=== PATIENT | male | born 1955 | race Caucasian/White ===

== ENCOUNTER 2017-10-09 20:30 | Inpatient (IN) | payer BC ==
[~2017-10-09] VITALS: Ht 172.7 cm; Wt 104.2 kg
[~2017-10-09 20:30] MED LIST: ATOR20 PO; CODLIVC PO; DOXA4 PO; DULO30 PO; EZET10 PO; INDO50 PO; LOPE2C PO; LOSA25 PO; LOSHYD; META800 PO; METO25ER; METO25ER PO; METO50; OMEP20ER; OMEP20ER PO; OMEPRAZOLE MAGN20 MG PO; PROM25 PO; SALMON OIL; TRAM50; TRAM50 PO; WARF5; WARF5 PO; WARF7.5 PO; [UNRECOGNIZED DRUG - OTHER]
[2017-10-09 21:01] LABS: BASOPHILS ABSOLUTE AUTO 0.06 K/mm3 (0.00-0.23); BASOPHILS PERCENT AUTO 1 % (0-2); EOSINOPHILS ABSOLUTE AUTO 0.25 K/mm3 (0.00-0.68); EOSINOPHILS PERCENT AUTO 4 % (0-6); Hematocrit 36.8 % (37.0-53.0); Hemoglobin 12.9 g/dL (13.5-17.5); IMMATURE GRAN ABSOLUTE AUTO 0.01 K/mm3 (0.00-0.10); IMMATURE GRAN PERCENT AUTO 0 % (0-1); LYMPHOCYTES PERCENT AUTO 25 % (21-46); MONOCYTES ABSOLUTE AUTO 0.74 K/mm3 (0.16-1.47); MONOCYTES PERCENT AUTO 13 % (4-13); Mean Corpuscular HGB Conc 35.1 g/dL (31.5-36.5); Mean Corpuscular Volume 83 fL (80-100); Mean Platelet Volume 9.5 fL (9.1-12.4); NEUTROPHILS ABSOLUTE AUTO 3.17 K/mm3 (1.96-9.15); NEUTROPHILS PERCENT AUTO 56 % (41-73); Platelet Count 147 K/mm3 (150-400); RDW Coefficient Variation 13.3 % (11.7-14.2); RDW Standard Deviation 40.1 fL (35.1-46.3); Red Blood Cell Count 4.45 M/mm3 (4.30-5.90); White Blood Cell Count 5.63 K/mm3 (4.00-11.30)
[2017-10-09 21:24] LABS: Alanine Aminotransfer (ALT/SGP 52 U/L (12-78); Albumin, Blood 4.1 g/dL (3.4-5.0); Albumin/Globulin Ratio 1.3 (0.8-1.8); Alk Phos 107 U/L (50-136); Anion Gap 10 mmol/L (6-16); Aspartate Aminotrans (AST/SGOT 45 U/L (12-37); Bilirubin, Total 0.3 mg/dL (0.1-1.0); Blood Urea Nitrogen 19 mg/dL (8-24); Bun/Creatinine Ratio 19.2 (12.0-20.0); CO2, Blood 25 mmol/L (21-32); Calcium, Blood 8.6 mg/dL (8.5-10.1); Chloride, Blood 107 mmol/L (98-108); Creatinine, Blood 0.99 mg/dL (0.60-1.20); Globulin, Blood 3.2 g/dL (2.2-4.0); Glomerular Filtration Rate >60 (60-); Glucose, Blood 127 mg/dL (70-99); Potassium, Blood 3.6 mmol/L (3.5-5.5); Sodium, Blood 142 mmol/L (136-145); Total Protein, Blood 7.3 g/dL (6.4-8.2)
[2017-10-09 21:39] LABS: Troponin I 0.697 ng/mL (0.000-0.040)
[2017-10-09] MEDS ORDERED: INDO50 PO (21:55)
[2017-10-09] MEDS ORDERED: HYDR1TAB94 PO (21:57)
[2017-10-09 22:42] LABS: International Normalized Ratio 2.72; Prothrombin Time Results 29.2 Sec (9.7-11.5)
[2017-10-09 23:52] LABS: Magnesium, Blood 2.3 mg/dL (1.6-2.4); Phosphorus, Blood 2.4 mg/dL (2.5-4.9)
[2017-10-10] MEDS ORDERED: METO25 PO (03:28)
[2017-10-10] MEDS ORDERED: Multivitamin1 EAC1 PO (03:49)
[2017-10-10] MEDS ORDERED: ACET325 PO (03:50)
[2017-10-10 05:37] LABS: International Normalized Ratio 3.05
[2017-10-10 05:57] LABS: Creatine Kinase MB 19.8 ng/mL (0.0-3.6); Creatine Kinase MB Index 5.5 (0.0-4.0)
[2017-10-10 06:07] LABS: Prothrombin Time Results 32.8 Sec (9.7-11.5)
[2017-10-10 06:17] LABS: Troponin I 1.61 ng/mL (0.000-0.040)
[2017-10-10 06:26] LABS: Albumin, Blood 3.5 g/dL (3.4-5.0); Albumin/Globulin Ratio 1.1 (0.8-1.8); Alk Phos 78 U/L (50-136); Anion Gap 8 mmol/L (6-16); Aspartate Aminotrans (AST/SGOT 45 U/L (12-37); Bilirubin, Total 0.4 mg/dL (0.1-1.0); Blood Urea Nitrogen 18 mg/dL (8-24); Bun/Creatinine Ratio 19.6 (12.0-20.0); CO2, Blood 28 mmol/L (21-32); Calcium, Blood 8.1 mg/dL (8.5-10.1); Chloride, Blood 108 mmol/L (98-108); Creatinine, Blood 0.92 mg/dL (0.60-1.20); Globulin, Blood 3.1 g/dL (2.2-4.0); Glomerular Filtration Rate >60 (60-); Glucose, Blood 92 mg/dL (70-99); Magnesium, Blood 2.2 mg/dL (1.6-2.4); Phosphorus, Blood 2.8 mg/dL (2.5-4.9); Potassium, Blood 3.5 mmol/L (3.5-5.5); Sodium, Blood 144 mmol/L (136-145); Total Protein, Blood 6.6 g/dL (6.4-8.2)
[2017-10-10 06:27] LABS: Alanine Aminotransfer (ALT/SGP 49 U/L (12-78)
[2017-10-10 12:22] LABS: Creatine Kinase MB 21.4 ng/mL (0.0-3.6); Creatine Kinase MB Index 6.3 (0.0-4.0)
[2017-10-10 12:27] LABS: Troponin I 1.76 ng/mL (0.000-0.040)
[2017-10-11 04:10] LABS: International Normalized Ratio 2.3; Prothrombin Time Results 24.5 Sec (9.7-11.5)
[2017-10-12 04:14] LABS: International Normalized Ratio 1.46; Prothrombin Time Results 15.4 Sec (9.7-11.5)
[2017-10-13] MEDS ORDERED: ATOR40TA PO (11:26)
[2017-10-13] MEDS ORDERED: DULO60 PO (11:27)
[2017-10-13] MEDS ORDERED: METO25ER PO (11:28)
[2017-10-13] MEDS ORDERED: LOSA50 PO (11:29)
[2017-10-13] MEDS ORDERED: WARF7.5 PO (11:30)
[2017-10-13] MEDS ORDERED: NITR.6SL (11:31)
[2017-10-13] MEDS ORDERED: ENOX100I SC (11:33)
[2017-10-13] MEDS ORDERED: ALLO100 PO (11:33)
== END 2017-10-13 12:03 | disposition home or self-care (01) | DRG 282 ==
LOC: ER 20:30 → PCU 23:16 → ICUE 10-10 15:05 → PCU 10-11 16:59
PROVIDERS: Emergency Medicine; Family Medicine
DX: I21.4 Non-ST elevation (NSTEMI) myocardial infarction (principal); Z95.1 Presence of aortocoronary bypass graft; Z95.2 Presence of prosthetic heart valve; E78.5 Hyperlipidemia, unspecified; I10 Essential (primary) hypertension; I25.10 Atherosclerotic heart disease of native coronary artery without angina pectoris; G89.29 Other chronic pain; M54.5 Low back pain; M19.90 Unspecified osteoarthritis, unspecified site; G47.33 Obstructive sleep apnea (adult) (pediatric); Z79.01 Long term (current) use of anticoagulants; I25.2 Old myocardial infarction
CPT/HCPCS: 36415; 71045; 71046; 71275; 74175; 78452; 80053; 82550; 82553; 83735; 84100; 84484; 85025; 85610; 85651; 85730; 93005; 93010; 93017; 93306; 94660; 94762; 96374; 96375; 99285; A9500; C9113; J0280; J1644; J1885; J2270; J2785; J7030; J7040; Q9967

== ENCOUNTER → 2019-01-05 | Outpatient (CLI) | payer MEDICARE ==
[~2019-01-05] MED LIST changes: +ACET325 PO; +ALLO100 PO; +ATOR40TA PO; +DULO60 PO; +ENOX100I SC; +HYDR1TAB94 PO; +LOSA50 PO; +METO25 PO; +Multivitamin1 EAC1 PO; +NITR.6SL
== END | disposition home or self-care (01) ==
LOC: LAB SHORT 13:53 → LAB EV 13:53
DX: I35.9 Nonrheumatic aortic valve disorder, unspecified (principal)
CPT/HCPCS: 36416; 85610

== ENCOUNTER → 2019-11-28 | Outpatient (CLI) | payer MEDICARE ==
[2019-11-28 17:27] LABS: BASOPHILS ABSOLUTE AUTO 0.04 K/mm3 (0.00-0.23); BASOPHILS PERCENT AUTO 1 % (0-2); EOSINOPHILS ABSOLUTE AUTO 0.17 K/mm3 (0.00-0.68); EOSINOPHILS PERCENT AUTO 3 % (0-6); Hematocrit 37.6 % (37.0-53.0); Hemoglobin 13.2 g/dL (13.5-17.5); IMMATURE GRAN ABSOLUTE AUTO 0.01 K/mm3 (0.00-0.10); IMMATURE GRAN PERCENT AUTO 0 % (0-1); LYMPHOCYTES ABSOLUTE AUTO 1.47 K/mm3 (0.84-5.20); LYMPHOCYTES PERCENT AUTO 27 % (21-46); MONOCYTES ABSOLUTE AUTO 0.65 K/mm3 (0.16-1.47); MONOCYTES PERCENT AUTO 12 % (4-13); Mean Corpuscular HGB 29.6 pg (26.0-34.0); Mean Corpuscular HGB Conc 35.1 g/dL (31.5-36.5); Mean Corpuscular Volume 84 fL (80-100); Mean Platelet Volume 10.6 fL (9.1-12.4); NEUTROPHILS ABSOLUTE AUTO 3.21 K/mm3 (1.96-9.15); NEUTROPHILS PERCENT AUTO 58 % (41-73); Platelet Count 156 K/mm3 (150-400); RDW Coefficient Variation 13.4 % (11.7-14.2); RDW Standard Deviation 41.1 fL (35.1-46.3); Red Blood Cell Count 4.46 M/mm3 (4.30-5.90); White Blood Cell Count 5.55 K/mm3 (4.00-11.30)
[2019-11-28 17:40] LABS: Anion Gap 13 mmol/L (6-16); Blood Urea Nitrogen 15 mg/dL (8-24); Bun/Creatinine Ratio 14.2 (12.0-20.0); CO2, Blood 23 mmol/L (21-32); Calcium, Blood 8.6 mg/dL (8.5-10.1); Chloride, Blood 107 mmol/L (98-108); Creatinine, Blood 1.06 mg/dL (0.60-1.20); Glomerular Filtration Rate >60 (60-); Glucose, Blood 131 mg/dL (70-99); Potassium, Blood 3.9 mmol/L (3.5-5.5); Sodium, Blood 143 mmol/L (136-145); Troponin I <0.017 ng/mL (0.000-0.040)
[2019-11-28 18:15] LABS: International Normalized Ratio 2.74; Prothrombin Time Results 27.7 Sec (9.7-11.5)
== END ==
LOC: LAB EV 17:10 → LAB SHORT 17:10
PROVIDERS: Nurse Practitioner
DX: Z79.01 Long term (current) use of anticoagulants (principal); Z51.81 Encounter for therapeutic drug level monitoring; R03.0 Elevated blood-pressure reading, without diagnosis of hypertension
CPT/HCPCS: 80048; 83880; 84484; 85025; 85379; 85610

== ENCOUNTER 2020-06-01 10:48 | Inpatient (IN) | payer MEDICARE ==
[~2020-06-01] VITALS: Ht 170.2 cm; Wt 92.0 kg
[2020-06-01 11:33] LABS: BASOPHILS ABSOLUTE AUTO 0.03 K/mm3 (0.00-0.23); BASOPHILS PERCENT AUTO 1 % (0-2); EOSINOPHILS ABSOLUTE AUTO 0.14 K/mm3 (0.00-0.68); EOSINOPHILS PERCENT AUTO 3 % (0-6); Hematocrit 37.7 % (37.0-53.0); Hemoglobin 12.9 g/dL (13.5-17.5); IMMATURE GRAN ABSOLUTE AUTO 0.01 K/mm3 (0.00-0.10); IMMATURE GRAN PERCENT AUTO 0 % (0-1); LYMPHOCYTES ABSOLUTE AUTO 0.94 K/mm3 (0.84-5.20); LYMPHOCYTES PERCENT AUTO 19 % (21-46); MONOCYTES ABSOLUTE AUTO 0.53 K/mm3 (0.16-1.47); MONOCYTES PERCENT AUTO 11 % (4-13); Mean Corpuscular HGB 28.9 pg (26.0-34.0); Mean Corpuscular HGB Conc 34.2 g/dL (31.5-36.5); Mean Corpuscular Volume 85 fL (80-100); Mean Platelet Volume 10.4 fL (9.1-12.4); NEUTROPHILS ABSOLUTE AUTO 3.42 K/mm3 (1.96-9.15); NEUTROPHILS PERCENT AUTO 67 % (41-73); Platelet Count 139 K/mm3 (150-400); RDW Coefficient Variation 13.3 % (11.7-14.2); RDW Standard Deviation 40.9 fL (35.1-46.3); Red Blood Cell Count 4.46 M/mm3 (4.30-5.90); White Blood Cell Count 5.07 K/mm3 (4.00-11.30)
[2020-06-01 11:55] LABS: Alanine Aminotransfer (ALT/SGP 30 U/L (12-78); Albumin, Blood 4.2 g/dL (3.4-5.0); Albumin/Globulin Ratio 1.4 (0.8-1.8); Alk Phos 102 U/L (50-136); Anion Gap 6 mmol/L (6-16); Aspartate Aminotrans (AST/SGOT 26 U/L (12-37); Bilirubin, Total 0.5 mg/dL (0.1-1.0); Blood Urea Nitrogen 14 mg/dL (8-24); Bun/Creatinine Ratio 17.5 (12.0-20.0); CO2, Blood 25 mmol/L (21-32); Calcium, Blood 8.5 mg/dL (8.5-10.1); Chloride, Blood 111 mmol/L (98-108); Globulin, Blood 3.1 g/dL (2.2-4.0); Glomerular Filtration Rate >60 (60-); Glucose, Blood 95 mg/dL (70-99); Potassium, Blood 3.9 mmol/L (3.5-5.5); Sodium, Blood 142 mmol/L (136-145); Total Protein, Blood 7.3 g/dL (6.4-8.2); Troponin I <0.015 ng/mL (0.000-0.040)
[2020-06-01 12:03] LABS: Digoxin (Lanoxin) 0.07 ug/mL (0.80-2.00)
[2020-06-01] MEDS ORDERED: TRAM50 PO (13:38)
[2020-06-01] MEDS ORDERED: METOPROLOL TART25 MG PO (13:40)
[2020-06-01] MEDS ORDERED: LOSARTAN POTAS100 M1 PO (13:41)
[2020-06-01] MEDS ORDERED: WARF4 PO (13:44)
[2020-06-01] MEDS ORDERED: WARF3 PO (13:44)
--- NOTE | 2020-06-01 14:00 | NUR ---
ECHOCARDIOGRAM COMPLETED
[2020-06-01] MEDS ORDERED: AMLO10 PO (16:04)
--- NOTE | 2020-06-01 18:38 | NUR ---
NO ACUTE EVENTS THIS HALF OF SHIFT. PATIENT ARRIVED FROM ED VIA GURNEY, ABLE TO AMBULATE INDEPENDENTLY TO BED. PATIENT DENIES CHEST PAIN/PRESSURE. DR. RENO CONSULTED GIVEN PATIENT'S EXTENSIVE CARDIAC HISTORY, PLAN IS FOR STRESS TEST TOMORROW, NO CAFFIENE AND NPO EXCEPT MEDS/ICE CHIPS 4 HRS PRIOR TO TEST. IV HEPARIN CONSULT ORDERED, LOOK FOR ORDERS POST LAB DRAW.
[2020-06-01 19:18] LABS: International Normalized Ratio 2.63; Prothrombin Time Results 26.6 Sec (9.7-11.5)
[2020-06-02 04:36] LABS: BASOPHILS ABSOLUTE AUTO 0.03 K/mm3 (0.00-0.23); BASOPHILS PERCENT AUTO 1 % (0-2); EOSINOPHILS ABSOLUTE AUTO 0.13 K/mm3 (0.00-0.68); EOSINOPHILS PERCENT AUTO 2 % (0-6); Hematocrit 37.2 % (37.0-53.0); Hemoglobin 12.8 g/dL (13.5-17.5); IMMATURE GRAN ABSOLUTE AUTO 0.01 K/mm3 (0.00-0.10); IMMATURE GRAN PERCENT AUTO 0 % (0-1); LYMPHOCYTES ABSOLUTE AUTO 1.52 K/mm3 (0.84-5.20); LYMPHOCYTES PERCENT AUTO 24 % (21-46); MONOCYTES ABSOLUTE AUTO 0.64 K/mm3 (0.16-1.47); MONOCYTES PERCENT AUTO 10 % (4-13); Mean Corpuscular HGB Conc 34.4 g/dL (31.5-36.5); Mean Corpuscular Volume 84 fL (80-100); Mean Platelet Volume 10.5 fL (9.1-12.4); NEUTROPHILS ABSOLUTE AUTO 3.92 K/mm3 (1.96-9.15); NEUTROPHILS PERCENT AUTO 63 % (41-73); Platelet Count 143 K/mm3 (150-400); RDW Coefficient Variation 13.2 % (11.7-14.2); RDW Standard Deviation 40.7 fL (35.1-46.3); Red Blood Cell Count 4.41 M/mm3 (4.30-5.90); White Blood Cell Count 6.25 K/mm3 (4.00-11.30)
[2020-06-02 04:56] LABS: International Normalized Ratio 2.22
[2020-06-02 04:58] LABS: Anion Gap 7 mmol/L (6-16); Blood Urea Nitrogen 17 mg/dL (8-24); Bun/Creatinine Ratio 20.9 (12.0-20.0); CHOL/HDL RATIO 4.8; CO2, Blood 25 mmol/L (21-32); Calcium, Blood 8.8 mg/dL (8.5-10.1); Chloride, Blood 110 mmol/L (98-108); Cholesterol 135 mg/dL (50-200); Creatinine, Blood 0.82 mg/dL (0.60-1.20); Glomerular Filtration Rate >60 (60-); Glucose, Blood 103 mg/dL (70-99); HDL Cholesterol 28 mg/dL (>39); Low Density Lipoprotein Chol 56 mg/dL (0-110); Magnesium, Blood 2.3 mg/dL (1.6-2.4); Potassium, Blood 3.6 mmol/L (3.5-5.5); Sodium, Blood 142 mmol/L (136-145); Triglycerides 257 mg/dL (30-160); Very Low Density Lipoprot Chol 51 mg/dL (6-32)
[2020-06-02 05:26] LABS: Prothrombin Time Results 22.7 Sec (9.7-11.5)
--- NOTE | 2020-06-02 05:47 | NUR ---
SHIFT SUMMARY PT STATED HAVING CHEST PAIN AND BODY ACHES AT THE BEGINING OF SHIFT, CHEST PAIN PERSISTED T/O THE SHIFT AT A 2 OF 10 RATING AND CONSTANT, PT STATED IT WAS NOT ANY BETTER OR WORSE. BP AND HR HAVE BEEN STABLE T/O THE NIGHT, PT ON CONTINOUS PULSE OX, ABOVE 90% ON ROOM AIR. TELE SHOWED PROLONGED RUNS OF BIGEMINY, PT WAS ASYMPTOMATIC. 12 LEAD EKG PERFORMED AT 0530. BED IN LOW POSITION, PT HAS CALL LIGHT. WILL CONTINUE TO MONITOR UNTIL SHIFT CHANGE.
[2020-06-02] MEDS ORDERED: DOXA4 PO (07:21)
[2020-06-02] MEDS ORDERED: DULO60 PO (07:22)
[2020-06-02] MEDS ORDERED: DULO30 PO (07:23)
--- NOTE | 2020-06-02 07:56 | NUR ---
ASSUMED PATIENT CARE. PATIENT RESTING COMFORTABLY IN BED, NO SIGNS OF ACUTE DISTRESS, WCTM.
--- NOTE | 2020-06-02 11:56 | NUR ---
Patient is sitting on a chair and alert. Patient tells me about his medical history, his current issues and the care plan going forward. 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 He discusses his 's long list of medical issues and the importance of him being well so he can take care of her. I listen empathcially, normalize patient's experience and provide companionship and prayer. Patient responds well and tears up a bit during the prayer. I will continue to remain available to patient and family.
--- NOTE | 2020-06-02 18:31 | NUR ---
NO ACUTE EVENTS THIS SHIFT. PATIENT HAD STRESS TEST DONE TODAY, PENDING RESULTS. PATIENT DENIED CHEST PAIN/PRESSURE, ENDORSED GENERALIZED PAIN/DISCOMFORT OF SHOULDERS AND BACK, ENDORSED RELIEF WITH ULTRAM. PATIENT HAS BEEN SINUS DONNA IN THE 50S AT TIMES, HR 60S WITH BIGEMINY PER [employer] AT TIMES THIS SHIFT. NO SIGNS OF ACUTE DISTRESS, ABLE TO AMBULATE INDEPENDENTLY IN ROOM.
[2020-06-03 04:44] LABS: International Normalized Ratio 1.49; Prothrombin Time Results 15.6 Sec (9.7-11.5)
--- NOTE | 2020-06-03 05:40 | NUR ---
PT RESTED THROUGH NIGHT AO TELE SINUS DONNA/NSR ROOM AIR UP TO SHOWER VOIDING 1 BM PAIN X2 VSS CALL LIGHT WITHIN REACH, BED IN LOWEST POSITION. WILL CONTINUE TO MONITOR.
--- NOTE | 2020-06-03 07:19 | NUR ---
ASSUMED PATIENT CARE. PATIENT RESTING COMFORTABLY IN BED, CONVERSING WITH NURSING STAFF. NO SIGNS OF ACUTE DISTRESS, WCTM.
--- NOTE | 2020-06-03 17:29 | NUR ---
NO ACUTE EVENTS THIS SHIFT. PATIENT SR TO SINUS DONNA. PATIENT WENT TO [employer]ACHIN[employer], ANGIO DONE, NO INTERVENTIONS. PLAN IS TO RESTART HEPARIN DRIP AT 2200, AND BRIDGE TO COUMADIN TOMORROW. PATIENT DENIED CHEST PAIN THIS SHIFT, NO SIGNS OF DISCHARGE AT ANGIO SITE, NO HEMATOMA NOTED, WCTM.
[2020-06-04 04:30] LABS: International Normalized Ratio 1.27; Prothrombin Time Results 13.4 Sec (9.7-11.5)
--- NOTE | 2020-06-04 05:40 | NUR ---
PT RESTED THROUGH NIGHT AO TELE NSR/DONNA - ASYMPTOMATIC ROOM AIR WHEN AWAKE - CPAP @HS NO BM VOIDING INDEPENDENTLY TO TOILET R GROIN SITE C/D/I - NO SIGNS OF BLEEDING PAIN X2 VSS HEP GTT 13U/KG/HR @20.3ML/HR - LATEST PTT 38.8 CALL LIGHT WITHIN REACH, BED IN LOWEST POSITION. WILL CONTINUE TO MONITOR.
--- NOTE | 2020-06-04 12:00 | NUR ---
Patient tells me about the angiogram and about the current treatment he is receiving. Patient then shares about his struggles and lessons learned in life. Patient is humble and kind. Patient gives personal details of some of the difficulties and pressures of this season of life. I listen empathically, normalize patient's experience and provide spiritual guidance and prayer. Patient responds well and and displays evidence of being spiritually/emotionally encouraged. I will continue to remain availble to patient and family
[2020-06-04 12:31] LABS: Mean Platelet Volume 10.6 fL (9.1-12.4); Platelet Count 136 K/mm3 (150-400)
--- NOTE | 2020-06-04 15:02 | NUR ---
UPDATE PT ALERT AND ORIENTED. VS STABLE. O2 SATS REMAIN ABOVE 90% ON RA. BP STABLE. PT DENIES ANY PAIN. PT ABLE TO AMBULATE AROUND DEPARTMENT WITHOUT ANY COMPLICATIONS. RIGHT GROIN SITE FREE FROM ANY BLEEDING OR HEMATOMA NOTED. STATUS CHANGED TO MEDICAL. PT TO BE TAKEN UP BY WC.
--- NOTE | 2020-06-04 17:19 | NUR ---
PATIENT IS ALERT AND ORIENTED AND COOPERATIVE WITH CARE. PATIENT TRANSFERRED FROM PCU TO MED FLOOR THIS AFTERNOON. PATIENT IS INDEPENDENT TO THE BATHROOM. HIS DAUGHTER IS AT THE BEDSIDE AT THIS TIME. HEPARIN DRIP IS INFUSING. CPAP IS AT THE BEDSIDE. WILL CONTINUIE TO MONITOR.
[2020-06-05 02:02] LABS: BASOPHILS ABSOLUTE AUTO 0.03 K/mm3 (0.00-0.23); BASOPHILS PERCENT AUTO 0 % (0-2); EOSINOPHILS ABSOLUTE AUTO 0.15 K/mm3 (0.00-0.68); EOSINOPHILS PERCENT AUTO 2 % (0-6); Hematocrit 42.7 % (37.0-53.0); Hemoglobin 14.5 g/dL (13.5-17.5); IMMATURE GRAN ABSOLUTE AUTO 0.03 K/mm3 (0.00-0.10); IMMATURE GRAN PERCENT AUTO 0 % (0-1); LYMPHOCYTES ABSOLUTE AUTO 1.45 K/mm3 (0.84-5.20); LYMPHOCYTES PERCENT AUTO 15 % (21-46); MONOCYTES ABSOLUTE AUTO 0.96 K/mm3 (0.16-1.47); MONOCYTES PERCENT AUTO 10 % (4-13); Mean Corpuscular HGB 29.1 pg (26.0-34.0); Mean Corpuscular Volume 86 fL (80-100); Mean Platelet Volume 10.4 fL (9.1-12.4); NEUTROPHILS ABSOLUTE AUTO 7.33 K/mm3 (1.96-9.15); NEUTROPHILS PERCENT AUTO 74 % (41-73); Platelet Count 153 K/mm3 (150-400); RDW Coefficient Variation 13.5 % (11.7-14.2); Red Blood Cell Count 4.98 M/mm3 (4.30-5.90); White Blood Cell Count 9.95 K/mm3 (4.00-11.30)
[2020-06-05 02:16] LABS: Albumin, Blood 4.6 g/dL (3.4-5.0); Anion Gap 4 mmol/L (6-16); Blood Urea Nitrogen 19 mg/dL (8-24); Bun/Creatinine Ratio 19.4 (12.0-20.0); CO2, Blood 27 mmol/L (21-32); Calcium, Blood 9.4 mg/dL (8.5-10.1); Chloride, Blood 110 mmol/L (98-108); Creatinine, Blood 0.98 mg/dL (0.60-1.20); Glomerular Filtration Rate >60 (60-); Glucose, Blood 114 mg/dL (70-99); Magnesium, Blood 2.2 mg/dL (1.6-2.4); Phosphorus, Blood 3.1 mg/dL (2.5-4.9); Potassium, Blood 3.9 mmol/L (3.5-5.5); Sodium, Blood 141 mmol/L (136-145)
[2020-06-05 02:18] LABS: International Normalized Ratio 1.37; Prothrombin Time Results 14.4 Sec (9.7-11.5)
--- NOTE | 2020-06-05 05:45 | NUR ---
DIRECTOR [employer] SU[employer] SUMMARY ALERT AND ORIENTED. APPEARED TO SLEEP MOST OF SHIFT. DENIES PAIN, BREATHING IS UNLABORED. HEPARIN CURRENTLY INFUSING. NO ACUTE CHANGES AT THIS TIME. BED IN LOWEST POSITION WITH CALL LIGHT IN REACH. WILL CONTINUE TO MONITOR AND REPORT TO ONCOMING RN.
[2020-06-05] MEDS ORDERED: METO50ER (13:16)
[2020-06-05] MEDS ORDERED: ASPI81CH PO (13:17)
[2020-06-05] MEDS ORDERED: ENOX100I SC (13:18)
[2020-06-05] MEDS ORDERED: NITR.4SL SL (13:19)
--- NOTE | 2020-06-05 14:03 | NUR ---
PT AWAKE AT START OF SHIFT, SITTING UP IN BED. HEPARIN DRIP INFUSING PER EMAR. PT ADMITTED FOR RECURRENT CP. NO C/O PAIN SINCE COMING TO UNIT. TELE MX REPORTED PT IN SR WITH OCCASSIONAL PVC'S. PT RESTARTED ON COUMADIN A COUPLE OF DAYS AGO. DOSE ADJUSTED PER PHARMACY. PT UP INDEPENDENTLY IN AND TO BTHRM. DR WALTERS IN TO SEE PT. PT WANTING TO GO HOME. D/C ORDERS PLACED. MEDS FAXED TO [facility] PER PT REQUEST. [facility] GIVEN PRIOR TO D/C. PT REPORTED THAT HE HAS GIVEN THEM TO HIMSELF BEFORE AND NO FURTHER EDUCATION WAS NEEDED. DISCUSSED D/C MEDS WITH PT WHO VERBALIZED UNDERSTANDING; ALREADY TAKING THEM PRIOR TO ADMIT. HEPARIN DRIP STOPPED WHEN D/C ORDERS GIVEN. PT INDEPENDENT, WALKING IN HALLS, WAITING FOR D/C PAPERS. PT THEN ASSISTED OUT TO FAMILY CAR VIA W/C. NO C/O. DEEPA AND CO-OP.
== END 2020-06-05 13:49 | disposition home or self-care (01) | DRG 287 ==
LOC: ER 10:48 → PCU 10:49 → ER 12:58 → PCU 12:58 → MEDS 06-04 15:19
PROVIDERS: Emergency Medicine; Internal Medicine Cardiovascular Disease; Internal Medicine Gastroenterology; Internal Medicine Interventional Cardiology; Pharmacist; ADMIT Internal Medicine
PROC: B2111ZZ Fluoroscopy of Multiple Coronary Arteries using Low Osmolar Contrast (ICD-10-PCS; principal; 2020-06-03)
PROC: B2181ZZ Fluoroscopy of Left Internal Mammary Bypass Graft using Low Osmolar Contrast (ICD-10-PCS; 2020-06-03)
PROC: B21F1ZZ Fluoroscopy of Other Bypass Graft using Low Osmolar Contrast (ICD-10-PCS; 2020-06-03)
PROC: B41F1ZZ Fluoroscopy of Right Lower Extremity Arteries using Low Osmolar Contrast (ICD-10-PCS; 2020-06-03)
DX: R07.9 Chest pain, unspecified (principal); Z95.2 Presence of prosthetic heart valve; I25.10 Atherosclerotic heart disease of native coronary artery without angina pectoris; I25.2 Old myocardial infarction; E78.5 Hyperlipidemia, unspecified; G47.33 Obstructive sleep apnea (adult) (pediatric); Z95.1 Presence of aortocoronary bypass graft; Z79.82 Long term (current) use of aspirin; Z79.01 Long term (current) use of anticoagulants; I49.3 Ventricular premature depolarization; I25.5 Ischemic cardiomyopathy; M10.9 Gout, unspecified; F32.9 Major depressive disorder, single episode, unspecified
CPT/HCPCS: 36415; 71046; 76937; 78452; 80048; 80053; 80061; 80069; 80162; 83036; 83735; 83880; 84484; 85025; 85049; 85610; 85730; 93005; 93010; 93017; 93306; 93455; 94660; 94762; 96374; 99152; 99153; 99285-25; A9270-GY; A9500; C1760; C1769; C1894; G0378; J0706; J1644; J1650; J2250; J2785; J3010; J7030; Q9967

== ENCOUNTER → 2021-01-26 | Outpatient (CLI) | payer MEDICARE ==
[~2021-01-26] MED LIST changes: +AMLO10 PO; +ASPI81CH PO; +LOSARTAN POTAS100 M1 PO; +METO50ER; +METOPROLOL TART25 MG PO; +NITR.4SL SL; +WARF3 PO; +WARF4 PO
[2021-01-28 09:02] LABS: Stool Occult Blood Guaiac 1 Neg (Neg); Stool Occult Blood Guaiac 2 Neg (Neg)
[2021-01-28 09:03] LABS: Stool Occult Blood Guaiac 3 Neg (Neg)
== END | disposition home or self-care (01) ==
LOC: LAB 14:25 → LAB SHORT 14:25
PROVIDERS: Physician Assistant
DX: D64.9 Anemia, unspecified (principal)
CPT/HCPCS: 82272